=== PATIENT | male | born 1985 ===

== ENCOUNTER 2022-11-27 17:37 | Emergency (ER) | payer OTHER, SELFPAY ==
[2022-11-27 17:38] VITALS: BP 177/49; PULSE 84; RESP 16; TEMP 36.6; O2SAT 100
--- NOTE | 2022-11-27 18:26 | ED.BACK ---
HPI - Back Pain/Injury General Chief Complaint: Back Pain/Injury Stated Complaint: back pain/injury Time Seen by Provider: 11/27/22 18:16 History of Present Illness HPI Narrative: 37-year-old male reports for evaluation of right-sided low back pain since he injured it this morning while at the gym. Patient states he was using over the head shoulder press when he felt a give in his right lower back. Since then he is reported worsening pain with movement to his right flank. He reports taking 800 mg of ibuprofen at 10 AM and 500 mg of Tylenol at 2 pm without improvement. He states he has had this happen before 1 year ago and improved in a few days with back stretches. He denies midline tenderness, loss of bowel or bladder control or retention, saddle anesthesia, fever, IV drug use, use of immunosuppressants, steroid use, fevers, body aches or chills, nausea or vomiting, dysuria or hematuria, abdominal pain. Related Data Home Medications Medication Instructions Recorded Confirmed biotin 1 mg tablet 1 mg PO DAILY 11/16/22 multivitamin (Daily Multi-Vitamin 1 tablet PO DAILY 11/16/22 tablet) Allergies Allergy/AdvReac Type Severity Reaction Status Date / Time No Known Allergies Allergy Unverified 11/16/22 13:03 Review of Systems Review of Systems: CONSTITUTIONAL: Denies fever, chills EYES: Denies visual changes, redness, or discharge. ENT: Denies rhinorrhea, congestion, sore throat, or otalgia. CARDIOVASCULAR: Denies chest pain, palpitations, or edema. RESPIRATORY: Denies cough or dyspnea. GASTROINTESTINAL: Denies abdominal pain, nausea, vomiting, or diarrhea. GENITOURINARY: Denies dysuria or hematuria. SKIN: Denies rash or itching. MUSCULOSKELETAL: See HPI NEUROLOGIC: Denies headache, numbness, dizziness, or weakness. PSYCHIATRIC: Denies anxiety or depression. [facility] Past Medical History Medical History Dyslipidemia Recurrent herpes labialis Family History Family History Father Diabetes mellitus Hypertension Mother Hypertension Thyroid disorder Social History Social History Smoking status: Never smoker Alcohol intake: current Substance use: never Substance use type: does not use Lack of Transportation: No Lack of Food: Never True Current Housing: I Have Housing Concerned About Future Housing: No Difficulty Paying Gas/Electric Bills: No Difficulty Paying for Meds: No Currently Unemployed: No Education: Master's Degree or Higher Difficulty w/ Childcare or Family Care: No Living arrangements: with friend(s) Occupation/Education: occupation 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 HEAD: Normocephalic NECK: Supple. CHEST: No respiratory distress. Clear to auscultation, no adventitious breath sounds. HEART: Regular rate and rhythm. No murmur heard. Normal peripheral pulses. ABDOMEN: Soft, nontender, normal active bowel sounds. No CVA tenderness. BACK: No midline cervical, thoracic, lumbar spinous tenderness, step-offs or deformities. Tenderness to the right paraspinous muscles with palpation. Worsening pain to the area with movement of the torso. Negative straight leg raise bilaterally. EXTREMITIES: Normal range of motion. No edema. SKIN: Warm, dry, no rash. NEURO: No focal deficits. Alert and oriented x3. Strength 5/5 in bilateral lower extremities. No saddle anesthesia. Sensation intact. Patient ambulatory with a limp. PSYCH: Normal mood and affect. Course Vital Signs Vital signs: Vital Signs Temperature 97.9 F 11/27/22 17:38 Pulse Rate 84 11/27/22 17:38 Respiratory Rate 16 11/27/22 17:38 Blood
[2022-11-27] MEDS: KETOROLAC (*BKC) 60 MG/2 ML VIAL IM (18:36)
[2022-11-27] MEDS: CYCLOBENZAPRINE HCL 10 MG TABLET PO (18:37)
[2022-11-27] MEDS: HYDROcodone/acetaminophen (*CRX) 5-325 MG TABLET 1 TAB PO (18:37)
[2022-11-27] MEDS: LIDOCAINE 5% PATCH 1 PATCH TRANSDERM (19:00)
[2022-11-27 19:31] VITALS: BP 146/82; PULSE 79; RESP 18; O2SAT 100
== END 2022-11-27 19:20 | disposition home or self-care (01) ==
LOC: ANHED 18:31
PROVIDERS: Emergency Provider Physician Assistant; PCP Family Medicine
DX: S39.012A Strain of muscle, fascia and tendon of lower back, initial encounter (principal); E78.5 Hyperlipidemia, unspecified; X50.0XXA Overexertion from strenuous movement or load, initial encounter
CPT/HCPCS: 96372; 99283; A9270; J1885